=== PATIENT | male | born 1965 | race Caucasian/White ===

== ENCOUNTER 2017-10-29 22:12 | Emergency (ER) | payer SELFPAY ==
[2017-10-29] MEDS ORDERED: MAGNESIUM HYDROXIDE/AL HYDROX 30 ML, LIDOCAINE VISC 2% 15ML 15 ML PO ONE ×2 (22:33)
--- NOTE | 2017-10-29 22:38 | Emergency Department Record ---
History of Present Illness - General Chief Complaint: Back Pain/Injury Stated Complaint: BACK PAIN Time Seen by Provider: 10/29/17 22:15 Source: Patient Mode of Arrival: Ambulatory Limitations: No limitations - History of Present Illness Initial Comments: 51 yo male presents to ED of evaluation of "scapular pain radiating down my left arm for two days". Patient denies chest pain symptoms, but reports similar symptoms related to "a junky stomach". Patient reports a long history of stomach ulcers, states his gallbladder attack started with similar symptoms prior to surgery. Patient reports that only that improves hi symptoms is standing in a hot shower, denies pain with ROM of the upper arm. Patient denies previous heart problems, but reports smoking history and family history of heart disease. MD Complaint: Back pain Onset/Timin -: Days(s) Similar Symptoms Previously: Yes Place: Home Radiation: Other Severity: Moderate Severity scale (1-10): 6 Quality: Sharp, Stabbing Consistency: Intermittent Improves With: Sitting upright (hot shower), Other Worsens With: Eating Context: Unknown Associated Symptoms: Nausea/vomiting - Related Data Home Medications Medication Instructions Recorded Confirmed Last Taken Omeprazole 40 mg PO DAILY PRN 10/29/17 10/29/17 Unknown Allergies Allergy/AdvReac Type Severity Reaction Status Date / Time aspirin Allergy SWELLING Verified 10/29/17 22:26 OF THE FACE Travel Screening - Travel/Exposure Within Last 30 Days Have you traveled within the last 30 days?: No - Travel Symptoms Symptom Screening: None Review of Systems Constitutional: Denies: Chills, Fever, Malaise, Night sweats Eyes: Denies: Eye discharge, Eye pain ENT: Denies: Congestion, Ear pain, Epistaxis Respiratory: Denies: Cough, Dyspnea Cardiovascular: Denies: Chest pain, Dyspnea on exertion Endocrine: Denies: Fatigue, Heat or cold intolerance Gastrointestinal: Reports: Nausea. Denies: Abdominal pain, Vomiting Genitourinary: Denies: Incontinence, Retention Musculoskeletal: Denies: Arthralgia, Back pain, Gout, Joint swelling Skin: Denies: Bruising, Change in color Neurological: Denies: Abnormal gait, Confusion, Headache, Seizure Psychiatric: Denies: Anxiety Hematological/Lymphatic: Denies: Anemia, Blood Clots Past Medical History - SOCIAL HISTORY Smoking Status: Current every day smoker Alcohol Use: Rare Drug Use: Heavy Drug Use Detail:: Marijuana - RESPIRATORY Hx Respiratory Disorders: No - CARDIOVASCULAR Hx Cardio Disorders: No - NEURO Hx Neuro Disorders: No - GI Hx GI Disorders: Yes Hx Reflux: Yes Hx Wt Loss/Wt Gain: Yes (50lbs, intentional) - Hx Genitourinary Disorders: No - ENDOCRINE Hx Endocrine Disorders: No - MUSCULOSKELETAL Hx Musculoskeletal Disorders: No - PSYCH Hx Psych Problems: No - HEMATOLOGY/ONCOLOGY Hx Hematology/Oncology Disorders: No Family Medical History Any Significant Family History?: Yes Hx Heart Disease: Father, Brother/Sister Physical Exam - General General Appearance: Alert, Oriented x3, Cooperative, Mild distress Limitations: No limitations - Head Head exam: Atraumatic, Normocephalic, Normal inspection Head exam detail: negative: Abrasion, Contusion, Pacheco's sign, General tenderness, Hematoma, Laceration - Eye Eye exam: Normal appearance. negative: Conjunctival injection, Periorbital swelling, Periorbital tenderness, Scleral icterus - ENT Ear exam: negative: Auricular hematoma, Auricular trauma Nasal Exam: negative: Active bleeding, Discharge, Dried blood, Foreign body Mouth exam: negative: Drooling, Laceration, Muffled voice, Tongue elevation - Neck Neck exam: Normal inspection. negative: Meningismus, Tenderness - Respiratory Respiratory exam: Normal lung sounds bilaterally. negative: Rales, Respiratory distress, Rhonchi, Stridor - Cardiovascular Cardiovascular Exam: Regular rate, Normal rhythm, Normal heart sounds - GI/Abdominal GI/Abdominal exam: Soft. negative: Rebound, Rigid, Tenderness - Rectal Rectal exam: Deferred - exam: Deferred - Extremities Extremities exam: Normal inspection. negative: Calf tenderness, Pedal edema, Tenderness - Back Back exam: Denies: CVA tenderness (R), CVA tenderness (L) - Neurological Neurological exam: Alert, Normal gait, Oriented X3 - Psychiatric Psychiatric exam: Normal affect, Normal mood - Skin Skin exam: Normal color. negative: Abrasion Type of lesion: negative: abrasion Course Vital Signs 10/29/17 22:17 Temperature 97.7 F Pulse Rate [ 65 Pulse Ox Probe] Respiratory 36 H Rate Blood Pressure 135/81 [Right Arm] Pulse Ox 98 - Reevaluation(s) Reevaluation #1: 10/29/17 22:33 EKG: NSR 63 Normal axis, normal intervals ST depression I, II, V4-V6. No previous per patient and none on file. Patient also reports that he is allergic to ASA. GI cocktail and cardiac evaluation initiated. Reevaluation #2: 10/29/17 23:07 Labs reviewed: WBC: 12.3 Troponin 0.046 Lipase 265 Patient was updated on all result, examination does not appear c/w pancreatitis (no vomiting, no abdominal pain on examination). Will initiate transfer for further cardiac evaluation given patient's EKG changes and elevated Troponin. Reevaluation #3: 10/29/17 23:22 Case was discussed with Dr. Owusu, will accept transfer for admission at this time. Reevaluation #4: 10/30/17 00:07 Patient was updated on bed assignment, reports that he is unwilling to go by ambulance as he cannot afford it. Patient's friend is at the bedside and will drive him. Patient reports that his pain symptoms have been present for 3 days, therefore is declining EMS transport. Risks of , permanent impairment, or worsening of their current condition were discussed as well as the benefit of EMS transport and cardiac monitoring for arrhythmia or worsening symptoms. Patient verbalizes understanding of all risks and benefits, desires to be transported by private car AMA despite these risks. Based on my examination, the patient is alert, oriented, and answers all questions appropriately. Patient appears to have the capacity to make rational decisions based on my examination. Patients friend was present for the duration of our discussion as well. Medical Decision Making - Lab Data Result diagrams: 10/29/17 22:20 10/29/17 22:20 Disposition Disposition: Transfer Clinical Impression: Chest pain Qualifiers: Chest pain type: unspecified Qualified Code(s): R07.9 - Chest pain, unspecified Disposition: Acute Care Hospital Transfer Transfer To: [facility] Reason For Transfer: Cardiac evaluation, elevated Troponin with EKG changes Accepting Physician: Umer Time Discussed w/Accepting Physician: 23:23 Forms: Patient Portal Access Time of Disposition: 23:23 Quality - Quality Measures Quality Measures: N/A - Blood Pressure Screening Does Patient Have Any of the Following: No Blood Pressure Classification: Hypertensive Reading Systolic Measurement: 144 Diastolic Measurement: 99 Screening for High Blood Pressure: < First Hypertensive BP, F/U Documented > [ [id number]] First Hypertensive Follow-up Interventions: Referral to alternative/primary care provider.
[2017-10-29 22:42] LABS: BASO % 0.3 % (0-6); EOS % 1.9 % (0-6); GRAN % 62.4 % (47-80); HEMATOCRIT 47.3 % (42.0-52.0); HEMOGLOBIN 16.5 gm/dl (14.0-18.0); LYMPH % 28.1 % (16-45); MEAN CELL VOLUME 90.8 fl (81-97); MEAN CORPUSCULAR HEMOGLOBIN 31.7 pg (27-33); MEAN CORPUSCULAR HGB CONC 34.9 g/dl (32-36); MEAN PLATELET VOLUME 9.3 fl (7.4-10.4); MONO % 7.3 % (0-9); PLATELET COUNT 285 K/uL (130-400); RED BLOOD COUNT 5.21 M/uL (4.40-5.70); RED CELL DISTRIBUTION WIDTH 13.1 % (11.5-14.5); WHITE BLOOD COUNT W/O DIFF 12.3 K/uL (4.2-12.2)
[2017-10-29 22:52] LABS: BLOOD UREA NITROGEN 21 mg/dL (6-20); CREATININE 0.8 mg/dL (0.7-1.2); EST GLOMERULAR FILTRATION RATE > 60 mL/min; TOTAL PROTEIN 6.9 g/dL (6.6-8.7)
[2017-10-29 22:54] LABS: GLUCOSE,RANDOM 108 mg/dL (74-109)
[2017-10-29 22:57] LABS: ALB/GLOB RATIO 1.9 (1.1-1.8); ALBUMIN 4.5 g/dL (4.0-5.0); ALKALINE PHOSPHATASE 48 U/L (40-129); ALT/SGPT 27 U/L (<41); AST/SGOT 25 U/L (10.0-50.0); LIPASE 265 U/L (13-60)
== END 2017-10-30 00:20 | disposition short-term general hospital (02) ==
LOC: ER 22:12
DX: R07.9 Chest pain, unspecified (principal); R79.89 Other specified abnormal findings of blood chemistry; M25.512 Pain in left shoulder; R11.0 Nausea; M54.9 Dorsalgia, unspecified; F17.210 Nicotine dependence, cigarettes, uncomplicated
CPT/HCPCS: 80053; 83690; 84484; 85025; 93005; 93010; 99285